=== PATIENT | male | born 1935 | race Caucasian/White ===

== ENCOUNTER 2024-08-06 15:51 | Inpatient (IN) | payer OTHER, SELFPAY ==
[2024-08-06] VITALS (11 sets, daily range): BP systolic 140–191; BP diastolic 72–101
--- NOTE | 2024-08-06 12:09 | ED.GENMED ---
History of Present Illness
General
Chief Complaint: Musculo-Skeletal Complaint
Time Seen by Provider: 08/06/24 11:56
History of Present Illness
History of Present Illness:
Patient is an 89-year-old male with a history of dementia who [facility]. He is a new patient there. Staff noted his arm on the right side to be bruised after falls over the past few days. His daughter
accompanies him. She notes otherwise he is mentally at his baseline. There is no injury elsewhere that he noticed or family noticed.
Phy Exam
Physical Exam
Physical Exam:
General: No acute distress
Head: NCAT
Neck, Normal in appearance, no swelling, nontender
Respiratory: No Respiratory distress
Abdomen: No distension, no tenderness
Ext: Right arm diffusely erythematous with bruising that is partially healed to the right shoulder and dependent bruising throughout the right upper extremity. He has limited range of motion of the right shoulder and pain with palpation. Full
range of motion at the elbow and wrist without tenderness. Compartments are soft. Radial and ulnar pulses are palpable. 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 Pelvis/Lower
extremities atraumatic
Neuro: Alert and oriented x 1. Moves all extremities. Cranial nerves grossly intact. Sensation intact throughout. No dysmetria.
Skin: Pale
Course
Orders/Labs/Results
Orders:
Orders
08/06/24 11:29
EKG [Electrocardiogram (*1)] Urgent
Reason for Study: Other
Other Reason for Exam: frequent falls
08/06/24 11:30
EKG- Treatment ONCE
08/06/24 12:07
Elbow, 3 View, Right [CR Elbow - Right Min 3 Views] Urgent
Comment:
Reason For Exam: trauma
Shoulder, Right 2 Views [CR Shoulder - Right Min 2 View] Urgent
Comment:
Reason For Exam: arm trauma
Wrist, Right 3 Views [CR Wrist - Right Min 3 Views] Urgent
Comment:
Reason For Exam: trauma
08/06/24 12:08
CT Head W/o Iv Contrast Urgent
Comment:
Reason For Exam: fall
CR Chest - 2 Views Urgent
Comment:
Reason For Exam: chest trauma
08/06/24 13:00
Complete Blood Count/With Diff Urgent
Comprehensive Metabolic Panel Urgent
Creatine Phosphokinase Urgent
08/06/24 13:18
Straight Cath As Directed
Frequency: One time now
08/06/24 13:58
Urinalysis Reflex To Culture Urgent
Date Specimen was Collected: 08/06/24
Time Specimen was Collected: 13:56
Urine Microscopic Reflex Cult Urgent
08/06/24 14:57
0.9% Sodium Chloride 1000 ml [Nss] 1,000 ml IV BOLUS
Sling [Braces/Immobilizers] As Directed
Type of Brace/Immobilizer: Shoulder
08/06/24 15:16
Add On- LAB Urgent
Tests Added?: Total CK
Abnormal Lab Results
08/06/24 08/06/24
13:00 13:58
RBC 3.34 L 10^6/uL
(4.70-6.10)
Hgb 10.4 L g/dL
(13.0-18.0)
Hct 30.7 L %
(39.0-52.0)
MCH 31.1 H pg
(27.0-31.0)
RDW 16.3 H %
(11.5-14.5)
MPV 11.0 H fL
(7.4-10.4)
Absolute Lymphs (auto) 0.7 L 10^3/uL
(1.2-3.4)
Neutrophils % 79.7 H %
(42.2-75.2)
Lymphocytes % 11.3 L %
(20.5-51.1)
Sodium 133 L mmol/L
(135-145)
BUN 30 H mg/dl
(9-20)
Creatinine 1.7 H mg/dL
(0.7-1.3)
Glucose 112 H mg/dl
(70-99)
Total Bilirubin 3.5 H mg/dl
(0.2-1.3)
Ur Occult Blood Reflex 2+ A
(Negative)
Urine Urobilinogen 2+ A
(Neg - 1+)
Urine RBC 3-6 A /HPF
(0-2)
Urine Albumin (Reflex) 3+ A
(Neg - Trace)
08/06/24 13:00
08/06/24 13:00
Vital Signs
Initial and Last Documented VS:
Initial Vital Signs
Temp Pulse Resp BP Pulse Ox
97.6 F 67 18 157/83 96
08/06/24 11:18 08/06/24 11:18 08/06/24 11:18 08/06/24 11:18 08/06/24 11:18
Last Documented Vital Signs
Temp Pulse Resp BP Pulse Ox
97.6 F 69 21 179/95 94
08/06/24 11:18 08/06/24 14:15 08/06/24 14:00 08/06/24 14:00 08/06/24 14:15
*Critical Care Note
Total Time (30-74mins, 75-104mins- exclusive of procedures): Not Applicable
ED Attending Note
ED Attending Note
ED Attending Note:
patient with dementia
frequent falling at [facility]
large bruise to R arm -- healing . No fx seen. Suspect rotator cuff injury. placed in splint
Appears dehydrated . Giving IVF. LULU noted
will admit for further management, pt eval
-
Portions of this chart may have been created with voice recognition software.� Occasional wrong word or��sound alike� substitutions may have occurred due to the inherent limitations of voice recognition software.
Discharge Plan
Departure
Patient Disposition: Admit
Date of Disposition: 08/06/24
Time of Disposition: 15:13
Presentation/result/management discussed w/ accepting MD/DO: Hospitalist
Discharge Problem:
LULU (acute kidney injury), Injury of shoulder
Referrals:
Ronn Jordan MD [Family Provider] -
Interventions
Interventions:
*Risk Screen - Suicide Last Done: 08/06/24 11:18
*General Assessment Last Done: 08/06/24 11:18
*Neglect/Abuse Screening Last Done: 08/06/24 11:18
*ED COVID-19 Vaccine History Last Done: 08/06/24 11:18
ED-Musculoskeletal Assessment Last Done: 08/06/24 11:58
ED- Neurological Assessment Last Done: 08/06/24 11:58
ED-Skin Assessment Last Done: 08/06/24 11:58
Discharge Date and Time
Print Language: OCCITAN
[2024-08-06 13:11] LABS: % Eosinophils 0.6 % (0-6); % Immature Granulocytes 0.5 % (0-0.5); % Lymphocytes 11.3 % (20.5-51.1); % Monocytes 7.9 % (1.7-9.3); % Neutrophils 79.7 % (42.2-75.2); Absolute Lymphocytes 0.7 10^3/uL (1.2-3.4); Absolute Monocytes 0.5 10^3/uL (0.1-0.6); Hematocrit 30.7 % (39.0-52.0); Hemoglobin 10.4 g/dL (13.0-18.0); Mean Corp Hgb Conc. 33.9 g/dL (33.0-37.0); Mean Corpuscular Hgb 31.1 pg (27.0-31.0); Mean Corpuscular Volume 91.9 fL (80.0-94.0); Nucleated Red Blood Cells % 0 % (-); Platelet Count 147 10^3/uL (130-400); Red Blood Cell Count 3.34 10^6/uL (4.70-6.10); Red Cell Dist. Width 16.3 % (11.5-14.5); White Blood Cell Count 6.2 10^3/uL (4.8-10.8)
[2024-08-06 13:22] LABS: ALT (SGPT) 26 U/L (0-50); AST (SGOT) 47 U/L (17-59); Albumin 3.9 g/dl (3.5-5.0); Alkaline Phosphatase 84 U/L (38-126); Blood Urea Nitrogen 30 mg/dl (9-20); Calcium 8.7 mg/dl (8.4-10.2); Carbon Dioxide 27 mmol/L (22-30); Chloride 102 mmol/L (98-107); Glucose 112 mg/dl (70-99); Potassium 3.8 mmol/L (3.5-5.1); Sodium 133 mmol/L (135-145); Total Bilirubin 3.5 mg/dl (0.2-1.3)
[2024-08-06 14:23] LABS: Urine Albumin 3+ (Neg - Trace); Urine Bilirubin Negative (Negative); Urine Character Clear (Clear); Urine Color Yellow; Urine Glucose Negative (Negative); Urine Ketone Negative (Negative); Urine Leukocyte Negative (Negative); Urine Nitrite Negative (Negative); Urine Occult Blood 2+ (Negative); Urine Specific Gravity 1.015 (<1.030); Urine Urobilinogen 2+ (Neg - 1+)
[2024-08-06 15:04] LABS: Urine Mucus Many
[2024-08-06 15:05] LABS: Urine Amorphous Seen; Urine Squamous Cell 0-2 /LPF (Few)
[2024-08-06 15:06] LABS: Urine White Cell 0-2 /HPF (0-5)
[2024-08-06] MEDS: NSS 1000 IV (15:28)
--- NOTE | 2024-08-06 15:44 | HPS.HSE ---
Family Physician
-
Family Physician: Ronn Jordan
Chief Complaint
-
Right arm swelling and bruising for a few days during
History of Present Illness
89 years old male came from retirement. Patient has dementia and unable to provide history. History taken from family at bedside. Patient had history of falls. Has history of dementia. Recent months started on Aricept. Patient has gait
dysfunction. Multiple falls. Right upper extremity noticed to be have swelling with the bruising and staff at retirement put shoulder sling. No history of bone fracture.
In the ER, x-ray of the right shoulder/elbow/wrist no acute abnormalities or fracture.
Medical History
Past Medical History
Past Medical History: Reports Other (Coronary artery disease, status post pacemaker, permanent atrial fibrillation, gait dysfunction, CVA ( right side), dementia, renal insufficiency)
Past Surgical History: Reports Other (No recent major surgery)
Social History
Tobacco: Non-smoker
Alcohol: None
Drug: None
Personal:
Living: Longterm
Employment: Retired (worked as tile and marble installer. )
Family History
Family History: Not pertinent
Allergies / Home Medications
Allergies reflects when Allergies were last updated in [facility].
Home Medications with original date entered in [facility]
Allergy/Medication List:
Allergies
NKDA
Allergy/AdvReac Type Severity Reaction Status Date / Time
No Allergy Information Allergy Unverified 08/06/24 11:25
Available
Protonix
Aricept
Aspirin
Lasix
Atorvastatin
Review of Systems
-
Unable to obtain full review of systems at this time due to: Dementia
Physical Exam
Vital Signs
Vital Signs
Temp Pulse Resp BP Pulse Ox
97.6 F 69 21 179/95 94
08/06/24 11:18 08/06/24 14:15 08/06/24 14:00 08/06/24 14:00 08/06/24 14:15
Physical Exam
General: No Apparent Distress and Comfortable
HEENT: Moist mucous membranes and Atraumatic
Respiratory: Decreased Breath Sounds
Cardiac: S1/S2 and Murmur
GI: Soft, Non Tender and Non Distended
Genito-urinary: No Bloody Urine or Guerra
Musculoskeletal: No Cyanosis and Edema, Right Upper Extremity (with bruising, non tender)
Skin: Warm; No Jaundice
Neuro: Awake; No Slurred Speech, Facial Droop or Tremors
Psych: Calm and Apparent Dementia
Laboratory Results
-
08/06/24 13:00
08/06/24 13:00
Laboratory Results
Total Bilirubin 3.5 mg/dl (0.2-1.3) H 08/06/24 13:00
AST 47 U/L (17-59) 08/06/24 13:00
ALT 26 U/L (0-50) 08/06/24 13:00
Alkaline Phosphatase 84 U/L (38-126) 08/06/24 13:00
Impression/Plan
-
89 years old male presented with bruising and swelling of right upper extremity over the past few days. History of falls
# Right upper extremity bruising and swelling. No tenderness on examination.
If movement of the shoulder is nontender or limited. Limited movement of the elbow but nontender.
X-ray no acute fracture
Differential diagnosis include traumatic hematoma versus DVT
Will order venous ulcers
CAT scan of the right upper extremity without contrast due to renal insufficiency
Ordered Tylenol for pain as needed
# Gait dysfunction/history of multiple falls
Uses walker for ambulation
CAT scan showed old left parietal infarct and lacunar infarct in the left lentiform nucleus with diffuse cortical atrophy
PT/OT
Fall precautions
# Traumatic rhabdomyolysis
With history of falls.
Creatinine 290.
Will monitor
Mild IV fluid given.
# Primary hypertension
Uncontrolled.
Will try to get medication list, not available at present time.
Will give as needed low-dose hydralazine as needed.
# History of dementia, possible vascular due to history of stroke, continue with Aricept.
Discussed with family to use low-dose Risperdal for agitation, they agreed.
# History of coronary artery disease status cardiac bypass surgery. Patient follows with [facility]. We do not have records. No history of chest pain.
EKG paced rhythm.
Check troponin
Will try to get records. We do not have old EKG to compare
# History of permanent atrial fibrillation.
Off Eliquis due to history of falls. Currently on aspirin only
Monitor on telemetry
#Hyponatremia,
Mild. Will monitor
#Acute kidney injury. Suspect underlying chronic kidney disease.
Family was told last admission in [place] the his levels were elevated but they did not know the baseline and did not have records.
Will do bladder scan. Urine test is ordered.
Avoid nephrotoxic.
No history of vomiting or diarrhea.
Total time spent to see the patient on the floor, examine the patient, review data and lab results, discuss treatment plan with patient, family, ER doctor and nursing staff around 75 minutes
[2024-08-06 16:03] LABS: Creatine Phosphokinase 290 U/L (55-170)
[2024-08-06 16:36] LABS: COVID-19 Antigen Negative (Negative)
[2024-08-06 16:51] LABS: Troponin I 0.109 ng/ml
--- NOTE | 2024-08-06 18:15 | PTCARENOTE ---
Patient admitted in to room 435-2. AAOx1-2, agitated. PRN Risperdal administered. BP elevated, PRN hydralazine administered. Daughter at bedside. Bed alarm in place for patient safety.
[2024-08-06] MEDS: RISPERDAL 0.25 MG PO (18:54)
[2024-08-06] MEDS: APRESOLINE 5 MG IV (18:54)
[2024-08-06] MEDS: HEPARIN 5000 UNITS SC (19:40)
[2024-08-06 23:07] LABS: Troponin I 0.102 ng/ml
[2024-08-07] VITALS (11 sets, daily range): BP systolic 151–187; BP diastolic 69–103; PULSE 67; O2SAT 98
[2024-08-07 03:33] LABS: Troponin I 0.107 ng/ml
[2024-08-07] MEDS: HEPARIN 5000 UNITS SC ×2 (08:02→19:02)
[2024-08-07] MEDS: PROTONIX 40 MG PO (08:03)
[2024-08-07] MEDS: RISPERDAL 0.25 MG PO ×2 (08:03→19:01)
[2024-08-07] MEDS: LOW STRENGTH ASPIRIN 81 MG PO (08:03)
--- NOTE | 2024-08-07 09:06 | W.PN.HOSP.TC ---
Today's Communication/Plan
-
Empiric IV Ancef ( short course)
Give Tylenol to help with pain/agitation
Await blood work today
Assessment / Plan
Assessment / Plan
Physical Exam
General: No Apparent Distress and Comfortable
HEENT: Moist mucous membranes and Atraumatic
Respiratory: Decreased Breath Sounds
Cardiac: S1/S2 and Murmur
GI: Soft, Non Tender and Non Distended
Genito-urinary: No Bloody Urine or Guerra
Musculoskeletal: No Cyanosis and Edema, Right Upper Extremity (with bruising, non tender)
Skin: Warm; No Jaundice
Neuro: Awake; No Slurred Speech, Facial Droop or Tremors
Psych: Calm and Apparent Dementia
89 years old male presented with bruising and swelling of right upper extremity over the past few days. History of falls
# Right upper extremity contusion with bruising and swelling. No tenderness on examination.
Movement of the shoulder is nontender or limited. Limited movement of the elbow.
X-ray no acute fracture
US , no DVT
CT scan showed soft tissue swelling, seems contusion. Doubt cellulitis due to lack of fever, leukocytosis. Pt is not reliable about pain. Will do short course of IV Ancef.
Will order venous ulcers
c/w Tylenol for pain as needed
# Gait dysfunction/history of multiple falls
Uses walker for ambulation
CAT scan showed old left parietal infarct and lacunar infarct in the left lentiform nucleus with diffuse cortical atrophy
PT/OT
Fall precautions
# Traumatic rhabdomyolysis
With history of falls.
Creatinine 290.
Will monitor
Mild IV fluid given.
# Primary hypertension
Uncontrolled. Ordered BB
c/w as needed low-dose hydralazine as needed.
# History of dementia, possible vascular due to history of stroke, continue with Aricept.
Discussed with family to use low-dose Risperdal for agitation, they agreed.
# History of coronary artery disease status cardiac bypass surgery. Patient follows with [facility]. We do not have records. No history of chest pain.
EKG paced rhythm.
Check troponin
Will try to get records. We do not have old EKG to compare
# History of permanent atrial fibrillation/ CAD s/w surgery.
Back on BB and aspirin.
s/p pacemaker.
Off Eliquis due to history of falls. Currently on aspirin only
Monitored on telemetry
#Hyponatremia,
Mild. Will monitor
#Acute kidney injury. Suspect underlying chronic kidney disease.
Family was told last admission in [place] the his levels were elevated but they did not know the baseline and did not have records.
Bladder scan, no retention. Urine test is clear, positive RBCs.
c/w Flomax ,
Avoid nephrotoxic.
No history of vomiting or diarrhea.
Await blood work today
Total time spent to see the patient on the floor, examine the patient, review data and lab results, discuss treatment plan with nursing staff around 75 minutes
Anticipated Discharge: 24 - 48 hours
Subjective/Interval History
-
Date of Service: August 07, 2024
No chest pain
No sob
No fevers
+ agitation
Objective Data
-
Labs:
Laboratory Results
08/07/24
08:13
WBC Pending
Hgb Pending
Hct Pending
Plt Count Pending
Sodium Pending
Potassium Pending
Chloride Pending
Carbon Dioxide Pending
BUN Pending
Creatinine Pending
Glucose Pending
Calcium Pending
Vital Signs:
Vital Signs
Temp Pulse Resp BP Pulse Ox
97.9 F 69 22 166/103 95
08/07/24 07:20 08/07/24 07:20 08/07/24 07:20 08/07/24 07:20 08/07/24 07:20
I&O
08/06/24 08/07/24 08/08/24
06:59 06:59 06:59
Intake Total 240 / 240
Balance 240 / 240
[2024-08-07] MEDS: FLOMAX PO ×2 (09:11→09:23)
[2024-08-07] MEDS: LOPRESSOR PO ×2 (09:11→09:23)
[2024-08-07] MEDS: LASIX PO ×2 (09:11→09:23)
[2024-08-07] MEDS: ANCEF 5 IV ×2 (09:17→17:06)
[2024-08-07] MEDS: APRESOLINE 5 MG IV ×2 (09:18→15:33)
[2024-08-07 09:21] LABS: Hematocrit 31.4 % (39.0-52.0); Hemoglobin 10.1 g/dL (13.0-18.0); Mean Corp Hgb Conc. 32.2 g/dL (33.0-37.0); Mean Corpuscular Hgb 30.5 pg (27.0-31.0); Mean Corpuscular Volume 94.9 fL (80.0-94.0); Mean Platelet Volume 10.7 fL (7.4-10.4); Platelet Count 161 10^3/uL (130-400); Red Blood Cell Count 3.31 10^6/uL (4.70-6.10); Red Cell Dist. Width 16.4 % (11.5-14.5); White Blood Cell Count 7.9 10^3/uL (4.8-10.8)
[2024-08-07 10:16] LABS: Blood Urea Nitrogen 27 mg/dl (9-20); Calcium 8.5 mg/dl (8.4-10.2); Carbon Dioxide 22 mmol/L (22-30); Chloride 106 mmol/L (98-107); Creatine Phosphokinase 358 U/L (55-170); Estimated Creatinine Clearance 24 ml/min; Glucose 116 mg/dl (70-99); Potassium 3.4 mmol/L (3.5-5.1); Sodium 137 mmol/L (135-145)
[2024-08-07] MEDS: LOPRESSOR 25 MG PO (19:01)
[2024-08-07] MEDS: ARICEPT 5 MG PO (21:02)
[2024-08-07] MEDS: KLOR-CON 20 MEQ PO (21:02)
[2024-08-08] MEDS: ANCEF 5 IV ×3 (02:31→16:38)
[2024-08-08 03:05] VITALS: BP 169/81
[2024-08-08 07:07] LABS: Blood Urea Nitrogen 27 mg/dl (9-20); Calcium 8.6 mg/dl (8.4-10.2); Carbon Dioxide 24 mmol/L (22-30); Chloride 106 mmol/L (98-107); Estimated Creatinine Clearance 27 ml/min; Glucose 82 mg/dl (70-99); Potassium 3.5 mmol/L (3.5-5.1); Sodium 140 mmol/L (135-145)
[2024-08-08 07:59] VITALS: BP 200/93
[2024-08-08] MEDS: PROTONIX 40 MG PO (08:05)
[2024-08-08] MEDS: HEPARIN 5000 UNITS SC ×2 (08:05→20:39)
[2024-08-08] MEDS: LOPRESSOR 25 MG PO (08:05)
[2024-08-08] MEDS: FLOMAX 0.4 MG PO (08:05)
[2024-08-08] MEDS: KLOR-CON 20 MEQ PO (08:05)
[2024-08-08] MEDS: LASIX 40 MG PO (08:05)
[2024-08-08] MEDS: LOW STRENGTH ASPIRIN 81 MG PO (08:05)
--- NOTE | 2024-08-08 08:05 | PTCARENOTE ---
08/08- When attempting to administer medications in applesauce and feeding patient breakfast, patient aspirated on food. He visibly coughed it back up, vomiting it into a vomit bag, and he continued coughing after the emesis. HE has wet gurgly
voice quality and expiratory wheezing in his lower lobes. POX=95%R on RA with 84=HR. He needs to be told to swallow any food in his mouth. He is AAOX2. See Nursing Assessment. Notified Physician. Asked for NPO status and consulted Speech
Therapy.
--- NOTE | 2024-08-08 09:21 | CM ---
Initial assessment completed with daughter, Shraddha, via phone
Pharmacy verified: [facility] @ [address] [place] [address]
Daughter reported that patient was recently admitted to [facility] on 07/29/24; patient requires total care; incontinent; mobility via wheelchair since he has been there; used a rolling walker prior to his admission to facility
SNF stay 01/2024 @ [facility]; home health aids prior to move to [facility]
Daughter requested ambulance transport when discharged
PT recommendation is SNF vs return to [facility] with PT/OT
Plan: return to [facility]
--- NOTE | 2024-08-08 11:18 | W.PN.HOSP.TC ---
Addendum entered and electronically signed by Ralph Lopez MD 08/08/24 14:01:
Addendum
Patient is unable to swallow safely. Pulm hold oral diet and most of his oral medications. Start the patient on mild IV fluid with dextrose to avoid hypoglycemia. Change to IV metoprolol, IV Lasix, as needed IV hydralazine, IV Protonix, rectal
PRN Tylenol suppository, rectal aspirin.
Discussed with daughters at the bedside. Will continue supportive care. CODE STATUS, DNR/DO NOT INTUBATE. Consulted to speech therapy.
End
Original Note:
Today's Communication/Plan
-
c/w PT/OT
Monitor Bp
BMP in am
Assessment / Plan
Assessment / Plan
Physical Exam
General: No Apparent Distress and Comfortable
HEENT: Moist mucous membranes and Atraumatic
Respiratory: Decreased Breath Sounds
Cardiac: S1/S2 and Murmur
GI: Soft, Non Tender and Non Distended
Genito-urinary: No Bloody Urine or Guerra
Musculoskeletal: No Cyanosis and Edema, Right Upper Extremity (with bruising, swelling ( less today) non tender), good peripheral pulse.
Skin: Warm; No Jaundice
Neuro: Awake; No Slurred Speech, Facial Droop or Tremors,confused. Right arm weakness ( chronic post stroke in past).
Psych: Calm and Apparent Dementia
89 years old male presented with bruising and swelling of right upper extremity over the past few days. History of falls
# Right upper extremity contusion with bruising and swelling. No tenderness on examination.
Movement of the shoulder is nontender or limited. Limited movement of the elbow. Swelling is less today, still bruising noted and induration, no tenderness on exam ( pt is not able to report due to dementia), good right peripheral pulse.
X-ray no acute fracture
US , no DVT
CT scan showed soft tissue swelling, seems contusion. Doubt cellulitis due to lack of fever, leukocytosis. Pt is not reliable about pain. To do 3 days of IV Ancef.
c/w Tylenol for pain as needed
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
# Gait dysfunction/history of multiple falls
Uses walker for ambulation
CAT scan showed old left parietal infarct and lacunar infarct in the left lentiform nucleus with diffuse cortical atrophy
PT/OT
Fall precautions
# Traumatic rhabdomyolysis With history of falls.
CPK 290 and went up.
Creatinine is improving.
s/p IV fluid.
# Primary hypertension
Uncontrolled. Ordered his BB and Lasix.
c/w as needed low-dose hydralazine as needed.
# History of dementia, possible vascular due to history of stroke, continue with Aricept.
Discussed with family to use low-dose Risperdal for agitation, they agreed.
# History of coronary artery disease status cardiac bypass surgery. Patient follows with [facility]. We do not have records. No history of chest pain.
EKG paced rhythm.
Check troponin
Will try to get records. We do not have old EKG to compare
# History of permanent atrial fibrillation/ CAD s/w surgery.
Back on BB and aspirin.
s/p pacemaker.
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 Currently on aspirin only
Monitored on telemetry
#Hyponatremia,
Mild. Will monitor
#Acute kidney injury. 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
Creatinine came down.
Family was told last admission in [place] the his levels were elevated but they did not know the baseline and did not have records.
Bladder scan, no retention. Urine test is clear, positive RBCs.
c/w Flomax ,
Avoid nephrotoxic.
No history of vomiting or diarrhea.
Total time spent to see the patient on the floor, examine the patient, review data and lab results, discuss treatment plan with nursing staff around 75 minutes
Anticipated Discharge: 24 - 48 hours
Subjective/Interval History
-
Date of Service: August 08, 2024
No fever over night
Took his medications last night
Objective Data
-
Labs:
Laboratory Results
08/08/24
06:02
Sodium 140
Potassium 3.5
Chloride 106
Carbon Dioxide 24
BUN 27 H
Creatinine 1.5 H
Glucose 82
Calcium 8.6
Vital Signs:
Vital Signs
Temp Pulse Resp BP Pulse Ox
97.5 F 67 28 200/93 95
08/08/24 07:59 08/08/24 07:59 08/08/24 07:59 08/08/24 07:59 08/08/24 07:59
I&O
08/07/24 08/08/24 08/09/24
06:59 06:59 06:59
Intake Total 240 / 240 220 / 220
Balance 240 / 240 220 / 220
[2024-08-08] MEDS: APRESOLINE 10 MG IV (13:52)
[2024-08-08] MEDS: D5/0.9% SODIUM CHLORIDE 1000 IV (14:11)
[2024-08-08] MEDS: LOPRESSOR 2.5 MG IV ×3 (14:12→23:18)
[2024-08-08 16:00] VITALS: BP 146/88
[2024-08-08 17:43] VITALS: BP 146/88
[2024-08-08 19:50] VITALS: BP 145/85
[2024-08-08] MEDS: TYLENOL/FEVERALL 650 MG RECTAL (21:25)
[2024-08-08] MEDS: RISPERDAL M-TAB (ORALLY DISINTEGRATING) 1 MG PO (21:25)
[2024-08-08 22:11] VITALS: BP 186/80
[2024-08-09] MEDS: ANCEF 5 IV ×3 (01:50→17:11)
[2024-08-09] MEDS: D5/0.9% SODIUM CHLORIDE 1000 IV ×2 (02:00→14:54)
[2024-08-09 02:57] VITALS: BP 158/75
[2024-08-09] MEDS: LOPRESSOR 2.5 MG IV ×4 (05:17→23:45)
[2024-08-09 06:00] VITALS: BMI 26.3
[2024-08-09 07:27] VITALS: BP 156/86
[2024-08-09] MEDS: FLOMAX PO (08:02)
[2024-08-09] MEDS: PROTONIX IV 40 MG IV (08:03)
[2024-08-09] MEDS: HEPARIN 5000 UNITS SC ×2 (08:03→20:17)
[2024-08-09] MEDS: NSS (PRESERVATIVE FREE) 10 ML IV (08:03)
[2024-08-09 08:17] LABS: Hematocrit 30.5 % (39.0-52.0); Hemoglobin 9.6 g/dL (13.0-18.0); Mean Corp Hgb Conc. 31.5 g/dL (33.0-37.0); Mean Corpuscular Hgb 30.2 pg (27.0-31.0); Mean Corpuscular Volume 95.9 fL (80.0-94.0); Mean Platelet Volume 10.7 fL (7.4-10.4); Platelet Count 154 10^3/uL (130-400); Red Blood Cell Count 3.18 10^6/uL (4.70-6.10); Red Cell Dist. Width 17.1 % (11.5-14.5); White Blood Cell Count 8.5 10^3/uL (4.8-10.8)
[2024-08-09 08:42] LABS: Blood Urea Nitrogen 25 mg/dl (9-20); Calcium 8.6 mg/dl (8.4-10.2); Carbon Dioxide 26 mmol/L (22-30); Chloride 110 mmol/L (98-107); Creatine Phosphokinase 199 U/L (55-170); Estimated Creatinine Clearance 29 ml/min; Glucose 144 mg/dl (70-99); Potassium 3.5 mmol/L (3.5-5.1); Sodium 143 mmol/L (135-145); eGFR 48.34
--- NOTE | 2024-08-09 09:49 | PTOTSP ---
Dysphagia Evaluation
Patient with signs of oral/pharyngeal dysphagia and concern for possible aspiration, likely exacerbated by AMS. Chronic dysphagia risk factors noted (i.e., dementia, CVA). CXR this admission w/o PNA.
Recommend:
1. Temporary NPO
2. Medications via non-oral means
3. Oral care 3-5x daily with suctioning
4. Aspiration Risk Hydration Protocol - hold given overt coughing and wet vocal quality with sparing water
5. Dysphagia tx at the acute care level to determine if/when appropriate for diet and/or if instrumental testing appropriate
[2024-08-09 10:46] VITALS: BP 184/102
[2024-08-09] MEDS: RISPERDAL M-TAB (ORALLY DISINTEGRATING) 0.5 MG PO ×2 (12:42→20:17)
--- NOTE | 2024-08-09 12:46 | PTCARENOTE ---
Pt yelling, screaming out loud, agitated and pushing back at nursing care given. Dr Doty made aware and Risperdal 0.5mg SL given to pt. Will await results.
--- NOTE | 2024-08-09 14:07 | W.PN.HOSP.TC ---
Addendum entered and electronically signed by Magdi Doty MD 08/09/24 14:41:
Updated daughter Shraddha over the phone in details. Discussed with her that patient continues to fail speech and swallow evaluation. If the trend continues then patient would not be an appropriate candidate for feeding tube as with dementia
patient would like to remove it. Daughter also agreed. If patient continues to fail speech and swallow evaluation and plan will be to transition patient to hospice with comfort feeding. Will await repeat speech eval tomorrow.
Original Note:
Today's Communication/Plan
-
Continue with IV fluid
Speech evaluation daily
Monitor mentation
Risperdal standing
Fall precautions
Monitor labs
Prognosis guarded
Assessment / Plan
Assessment / Plan
Physical Exam
General: agitated
HEENT: Moist mucous membranes and Atraumatic
Respiratory: Decreased Breath Sounds
Cardiac: S1/S2 and Murmur
GI: Soft, Non Tender and Non Distended
Genito-urinary: No Bloody Urine or Guerra
Musculoskeletal: No Cyanosis and Edema, Right Upper Extremity (with bruising, non tender), good peripheral pulse.
Skin: Warm; No Jaundice
Neuro: Awake; No Slurred Speech, Facial Droop or Tremors,confused. Right arm weakness ( chronic post stroke in past).
Psych: agitated. Apparent Dementia
89 years old male presented with bruising and swelling of right upper extremity over the past few days. History of falls
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
Patient with severe agitation will start patient on Risperdal twice daily
fall precautions.
# Dysphagia
Speech recommending n.p.o. for now
Continue with IV fluids D5 normal saline. Monitor sodium level.
PO meds held and switch to IV for now.
# Right upper extremity contusion with bruising and swelling. No tenderness on examination.
Movement of the shoulder is nontender or limited. Limited movement of the elbow. good right peripheral pulse.
X-ray no acute fracture
US , no DVT
CT scan showed soft tissue swelling, seems contusion. Doubt cellulitis due to lack of fever, leukocytosis. Pt is not reliable about pain. To do 3 days of IV Ancef.
c/w Tylenol for pain as needed
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
# Gait dysfunction/history of multiple falls
Uses walker for ambulation
CAT scan showed old left parietal infarct and lacunar infarct in the left lentiform nucleus with diffuse cortical atrophy
PT/OT
Fall precautions
# Traumatic rhabdomyolysis With history of falls.
CPK 290 and went up.
Creatinine is improving.
s/p IV fluid.
# Primary hypertension
Uncontrolled. IV meds
c/w as needed low-dose hydralazine as needed.
# History of coronary artery disease status cardiac bypass surgery. Patient follows with [facility]. We do not have records. No history of chest pain.
# Elevated troponin likely nonischemic myocardial injury
EKG paced rhythm.
Will try to get records. We do not have old EKG to compare
# History of permanent atrial fibrillation/ CAD s/w surgery.
Back on BB and aspirin.
s/p pacemaker.
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 Currently on aspirin only
Monitored on telemetry
#Hyponatremia,
Mild. Will monitor
#Acute kidney injury. 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
Creatinine came down.
Family was told last admission in [place] the his levels were elevated but they did not know the baseline and did not have records.
Bladder scan, no retention. Urine test is clear, positive RBCs.
c/w Flomax ,
Avoid nephrotoxic.
No history of vomiting or diarrhea.
called daughter Shraddha JEAN to update but no response. Left for callback.
Anticipated Discharge: > 48 hours
Subjective/Interval History
-
Date of Service: August 09, 2024
agitated this morning
failed speech eval
Objective Data
-
Labs:
Laboratory Results
08/09/24
06:53
WBC 8.5
Hgb 9.6 L
Hct 30.5 L
Plt Count 154
Sodium 143
Potassium 3.5
Chloride 110 H
Carbon Dioxide 26
BUN 25 H
Creatinine 1.4 H
Glucose 144 H
Calcium 8.6
Vital Signs:
Vital Signs
Temp Pulse Resp BP Pulse Ox
98.6 F 76 18 184/102 96
08/09/24 10:46 08/09/24 10:46 08/09/24 10:46 08/09/24 11:28 08/09/24 10:46
I&O
08/08/24 08/09/24 08/10/24
06:59 06:59 06:59
Intake Total 220 / 220 1000 / 1000
Balance 220 / 220 1000 / 1000
Data Reviewed
-
Total Time Spent with Patient (in minutes): 58
[2024-08-09 15:18] VITALS: BP 175/92
--- NOTE | 2024-08-09 15:31 | CM ---
Chart reviewed and physical therapy are recommending skilled placement v's return to memory care at [facility]. Will follow with patient progress and reach out to family regarding plan for patient.
Plan: To await final recommendation from patient's family.
[2024-08-09] MEDS: NSS (PRESERVATIVE FREE) 0.125 ML IV (16:16)
[2024-08-09] MEDS: ATIVAN 0.25 MG IV (16:16)
--- NOTE | 2024-08-09 16:48 | PN.CDI ---
CDI
- -
CDI:
Physician Documentation Request
Admit Date: 08/06/24 15:51
Dear Doctor Soren,
Please review the following and provide your response in the progress notes.
Clinical Indicators:
Laboratory Tests
08/06/24 08/06/24 08/07/24
16:14 22:31 02:34
Troponin I 0.109 H* 0.102 H* 0.107 H*
Based on the above and your clinical assessment, please clarify the appropriate diagnosis, if significant, that supports the above abnormalities and additional evaluation, monitoring and/or treatment rendered:
Non ischemic myocardial injury
Abnormal lab value, clinically insignificant
Other(please specify)
Use of terms such as suspected, likely, concern for, or probable (associated with a specific diagnosis that is being evaluated, monitored, or treated as if it exists) are acceptable and can be coded in the inpatient setting, when documented at the
time of discharge.
Thank you,
Diana Reed RN BSN CCDS
CDI Specialist
please contact via tiger text
Please use your independent medical judgment in providing your response.
--- NOTE | 2024-08-09 16:52 | PN.CDI ---
CDI
- -
CDI:
Physician Documentation Request
Admit Date: 08/06/24 15:51
Dear Doctor Soren,
Please review the following and provide your response in the progress notes.
Clinical Indicators:
Laboratory Tests
08/06/24
13:00
Total Bilirubin 3.5 H
Based on the above, please clarify in the progress notes, the appropriate diagnosis, if significant, that supports the above abnormalities and additional evaluation, monitoring and/or treatment rendered:
Elevated total bilirubin
Abnormal lab value, clinically insignificant
Other(please specify)
Use of terms such as suspected, likely, concern for, or probable (associated with a specific diagnosis that is being evaluated, monitored, or treated as if it exists) are acceptable and can be coded in the inpatient setting, when documented at the
time of discharge.
Thank you,
Diana Reed RN BSN CCDS
CDI Specialist
please contact via tiger text
Please use your independent medical judgment in providing your response.
[2024-08-09 19:55] VITALS: BP 145/99
[2024-08-09] MEDS: TYLENOL/FEVERALL 650 MG RECTAL (20:17)
[2024-08-09 23:26] VITALS: BP 175/88
[2024-08-10] VITALS (7 sets, daily range): BP systolic 170–189; BP diastolic 84–97; PULSE 88; O2SAT 97
[2024-08-10] MEDS: ANCEF 5 IV ×2 (02:28→13:51)
[2024-08-10] MEDS: LOPRESSOR 2.5 MG IV ×2 (05:09→11:37)
[2024-08-10] MEDS: D5/0.9% SODIUM CHLORIDE 1000 IV (05:09)
[2024-08-10 07:20] LABS: % Basophils 0.2 % (0-2); % Immature Granulocytes 1.4 % (0-0.5); % Lymphocytes 12.2 % (20.5-51.1); % Monocytes 7.8 % (1.7-9.3); % Neutrophils 76.4 % (42.2-75.2); Absolute Eosinophils 0.1 10^3/uL (0-0.7); Absolute Immature Granulocytes 0.1 10^3/uL (0-0.05); Absolute Lymphocytes 0.6 10^3/uL (1.2-3.4); Absolute Monocytes 0.4 10^3/uL (0.1-0.6); Absolute Neutrophils 3.9 10^3/uL (1.4-6.5); Hematocrit 29.8 % (39.0-52.0); Hemoglobin 9.8 g/dL (13.0-18.0); Mean Corp Hgb Conc. 32.9 g/dL (33.0-37.0); Mean Corpuscular Hgb 30.3 pg (27.0-31.0); Mean Corpuscular Volume 92.3 fL (80.0-94.0); Mean Platelet Volume 11.5 fL (7.4-10.4); Nucleated Red Blood Cells % 0 % (-); Platelet Count 159 10^3/uL (130-400); Red Blood Cell Count 3.23 10^6/uL (4.70-6.10); Red Cell Dist. Width 17.3 % (11.5-14.5); White Blood Cell Count 5.1 10^3/uL (4.8-10.8)
[2024-08-10 07:36] LABS: Blood Urea Nitrogen 22 mg/dl (9-20); Calcium 8.7 mg/dl (8.4-10.2); Carbon Dioxide 21 mmol/L (22-30); Chloride 115 mmol/L (98-107); Estimated Creatinine Clearance 32 ml/min; Glucose 113 mg/dl (70-99); Potassium 3.5 mmol/L (3.5-5.1); Sodium 145 mmol/L (135-145); eGFR 52.84
[2024-08-10] MEDS: HEPARIN 5000 UNITS SC ×2 (07:52→20:12)
[2024-08-10] MEDS: FLOMAX PO (07:52)
[2024-08-10] MEDS: NSS (PRESERVATIVE FREE) 10 ML IV (07:53)
[2024-08-10] MEDS: PROTONIX IV 40 MG IV (07:53)
[2024-08-10] MEDS: RISPERDAL M-TAB (ORALLY DISINTEGRATING) 0.5 MG PO ×2 (07:56→20:12)
[2024-08-10] MEDS: APRESOLINE 10 MG IV ×3 (08:06→20:12)
[2024-08-10] MEDS: TYLENOL/FEVERALL 650 MG RECTAL (09:10)
--- NOTE | 2024-08-10 09:28 | PTCARENOTE ---
Patients BP remains elevated 175/84 post hydralazine administration, MD Doty notified, New orders to be placed. will continue to monitor.
--- NOTE | 2024-08-10 09:31 | PTOTSP ---
Dysphagia Therapy
Impression: Patient with signs of oral/pharyngeal dysphagia and concern for possible aspiration, likely exacerbated by AMS. Chronic dysphagia risk factors noted (i.e., dementia, CVA). Patient is not appropriate for video swallow study at this time
given current mentation. Per discussion with hospitalist, hospice is being considered.
Recommend:
1. Continue temporary NPO pending goals of care
2. Medications via non-oral means
3. Oral care 3-5x daily with suctioning
4. Aspiration Risk Hydration Protocol - hold given episodic absent swallows with ice chips, difficulty following commands, variable awareness of feeding tasks
5. Dysphagia tx at the acute care level to determine if/when appropriate for diet and/or if instrumental testing appropriate pending GOC
*If opting for PO diet for comfort/pleasure understanding risks/complications of aspiration, consider careful spoon feeding of puree and thin liquids with upright posture, small single sips/bites, verbal cues to swallow, breaks/stop if coughing/SOB
observed.
--- NOTE | 2024-08-10 12:52 | W.PN.HOSP.TC ---
Today's Communication/Plan
-
Await family decision
Clonidine patch
Continue with IV fluids in the interim
Prognosis guarded
Assessment / Plan
Assessment / Plan
Physical Exam
General: agitated
HEENT: Dry mucous membrane
Respiratory: Decreased Breath Sounds
Cardiac: S1/S2 and Murmur
GI: Soft, Non Tender and Non Distended
Genito-urinary: No Bloody Urine or Guerra
Musculoskeletal: No Cyanosis and Edema, Right Upper Extremity (with bruising, non tender), good peripheral pulse.
Skin: Warm; No Jaundice
Neuro: Awake; No Slurred Speech, Facial Droop or Tremors,confused. Right arm weakness ( chronic post stroke in past).
Psych: agitated. Apparent Dementia
89 years old male presented with bruising and swelling of right upper extremity over the past few days. History of falls
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
Patient with severe agitation will start patient on Risperdal twice daily
fall precautions.
# Dysphagia
Speech recommending n.p.o. for now
Continue with IV fluids D5 normal saline. Monitor sodium level.
PO meds held and switch to IV for now.
Discussed with patient daughter. Patient is an appropriate candidate for tube feeding as high risk the patient will remove gastric tube daughter and son-in-law agreed. Recommended hospice. Daughter to discuss with patient's spouse and decide.
# Right upper extremity contusion with bruising and swelling. No tenderness on examination.
Movement of the shoulder is nontender or limited. Limited movement of the elbow. good right peripheral pulse.
X-ray no acute fracture
US , no DVT
CT scan showed soft tissue swelling, seems contusion. Doubt cellulitis due to lack of fever, leukocytosis. Pt is not reliable about pain. Plan for 7-day short course of antibiotics. Renally adjusted.
c/w Tylenol for pain as needed
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
# Gait dysfunction/history of multiple falls
Uses walker for ambulation
CAT scan showed old left parietal infarct and lacunar infarct in the left lentiform nucleus with diffuse cortical atrophy
PT/OT
Fall precautions
# Traumatic rhabdomyolysis With history of falls.
CPK 290 and went up.
Creatinine is improving.
s/p IV fluid.
# Primary hypertension
Uncontrolled. IV meds hydralazine and clonidine patch started
If needed can add labetalol or IV Vasotec
# History of coronary artery disease status cardiac bypass surgery. Patient follows with [place] [facility]. We do not have records. No history of chest pain.
# Elevated troponin likely nonischemic myocardial injury
EKG paced rhythm.
Will try to get records. We do not have old EKG to compare
# History of permanent atrial fibrillation/ CAD s/w surgery.
Back on BB and aspirin.
s/p pacemaker.
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 Currently on aspirin only
Monitored on telemetry
#Hyponatremia,
Mild. Will monitor
#Acute kidney injury. 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
Creatinine came down.
Family was told last admission in [place] the his levels were elevated but they did not know the baseline and did not have records.
Bladder scan, no retention. Urine test is clear, positive RBCs.
c/w Flomax ,
Avoid nephrotoxic.
No history of vomiting or diarrhea.
Elevated total bilirubin
Discussed with patient daughter and patient son-in-law at bedside in detail
Anticipated Discharge: > 48 hours
Subjective/Interval History
-
Date of Service: August 10, 2024
Remains with agitation and confusion
Was eval by speech and recommending n.p.o.
Objective Data
-
Labs:
Laboratory Results
08/10/24
06:16
WBC 5.1
Hgb 9.8 L
Hct 29.8 L
Plt Count 159
Sodium 145
Potassium 3.5
Chloride 115 H
Carbon Dioxide 21 L
BUN 22 H
Creatinine 1.3
Glucose 113 H
Calcium 8.7
Vital Signs:
Vital Signs
Temp Pulse Resp BP Pulse Ox
97.7 F 75 20 170/89 98
08/10/24 11:00 08/10/24 11:00 08/10/24 11:00 08/10/24 11:37 08/10/24 11:00
I&O
08/09/24 08/10/24 08/11/24
06:59 06:59 06:59
Intake Total 1000 / 1000 825 / 825
Balance 1000 / 1000 825 / 825
Data Reviewed
-
Total Time Spent with Patient (in minutes): 55
[2024-08-10] MEDS: CATAPRES-TTS-1 0.1 MG TRANSDERM (13:52)
[2024-08-10] MEDS: TRANDATE 10 MG IV (17:12)
--- NOTE | 2024-08-10 17:12 | PTCARENOTE ---
patient's BP remains elevated 182/97 while at rest, MD Fairbanks notified and new orders to be placed. will continue to monitor.
--- NOTE | 2024-08-10 17:40 | PTCARENOTE ---
Report given to Amina in IMU
--- NOTE | 2024-08-10 18:40 | PTCARENOTE ---
Patient is unable to be redirected, does not follow commands. Patent is yelling out throughout the day and requesting water. Patient remains NPO per standing order and mouth care provided. BP monitored throughout the day. will continue to monitor.
--- NOTE | 2024-08-10 21:30 | PTCARENOTE ---
Addendum entered by Basil Holbrook RN 08/11/24 06:19:
Pt continues to rest comfortably no signs of distress/ discomfort. Continuous SP02 98% 2LNC. Respirations regular.
Addendum entered by Basil Holbrook RN 08/11/24 01:26:
Pt resting comfortably with no signs of restlessness, moaning. Sleeping, respirations regular. 98% 2L NC.
Original Note:
Pt tachypneic, restless, moaning seemingly struggling to breathe properly. Continuous SP02 on pt, 94% on RA. Pt placed on 2L NC for comfort. CURING ROOM SUPERVISOR made aware. CURING ROOM SUPERVISOR at bedside. 1mg IV morphine ordered. CURING ROOM SUPERVISOR spoke to family, care transitioning to comfort.
Morphine drip ordered. No further orders.
--- NOTE | 2024-08-10 21:43 | W.PN.UPDATE ---
Update Note
Progress Note Update
-Patient uncomfortable in bed tachypneic, currently on O2 NC, denies SOB, but he looks like struggling to breath. Patient in transition to hospice outpatient. Spoke to the daughters Magalys Llanes, and discussed the current situation and they
would like to start the process of comfort care.
-Comfort care process explained including D/C all meds and starting PRN morphine dose/ morphine gtt. Daughter agreed and mentioned that already discussed with the rest of the family and do not want her dad to suffer any more. Comfort care started.
[2024-08-10] MEDS: MORPHINE SULFATE 1 MG IV (21:44)
[2024-08-10] MEDS: D5/0.9% SODIUM CHLORIDE IV (22:08)
[2024-08-11 06:30] LABS: % Basophils 0.2 % (0-2); % Eosinophils 2.4 % (0-6); % Immature Granulocytes 1.3 % (0-0.5); % Lymphocytes 13.8 % (20.5-51.1); % Neutrophils 72.3 % (42.2-75.2); Absolute Eosinophils 0.1 10^3/uL (0-0.7); Absolute Immature Granulocytes 0.1 10^3/uL (0-0.05); Absolute Lymphocytes 0.6 10^3/uL (1.2-3.4); Absolute Monocytes 0.5 10^3/uL (0.1-0.6); Absolute Neutrophils 3.3 10^3/uL (1.4-6.5); Hematocrit 30.5 % (39.0-52.0); Hemoglobin 9.7 g/dL (13.0-18.0); Mean Corp Hgb Conc. 31.8 g/dL (33.0-37.0); Mean Corpuscular Hgb 30.1 pg (27.0-31.0); Mean Corpuscular Volume 94.7 fL (80.0-94.0); Mean Platelet Volume 10.4 fL (7.4-10.4); Nucleated Red Blood Cells % 0 % (-); Platelet Count 169 10^3/uL (130-400); Red Blood Cell Count 3.22 10^6/uL (4.70-6.10); Red Cell Dist. Width 17.6 % (11.5-14.5); White Blood Cell Count 4.6 10^3/uL (4.8-10.8)
[2024-08-11 07:02] LABS: Blood Urea Nitrogen 20 mg/dl (9-20); Calcium 8.6 mg/dl (8.4-10.2); Carbon Dioxide 24 mmol/L (22-30); Chloride 116 mmol/L (98-107); Estimated Creatinine Clearance 34 ml/min; Glucose 81 mg/dl (70-99); Potassium 3.3 mmol/L (3.5-5.1); Sodium 147 mmol/L (135-145); eGFR 58.17
[2024-08-11 08:07] VITALS: BP 185/99
[2024-08-11 09:17] VITALS: BMI 26.3
--- NOTE | 2024-08-11 11:01 | CM ---
Addendum entered by Genesis Wall 08/11/24 15:24:
CM placed another call to [facility], [facility] VM for nurse requesting return call. CM spoke with Wallace from [facility], equipment has been ordered, will confirm when delivery scheduled for. CM met with patient and family bedside, discussed awaiting
return call from [facility] to confirm equipment delivery, plan for discharge tomorrow. TT to Hospitalist with update. Patient will require ambulance transport.
Plan; return to [facility] with [facility], will require ambulance transport.
Original Note:
CM reviewed chart, reviewed with Hospitalist, family agreeable to return to [facility] with Hospice. Family seen bedside, agreeable to [facility]. CM spoke with Wallace from [facility] ([phone]) fax: [phone], clinicals sent, will
review ability to admit patient for services today versus tomorrow. Call to nurse Rock at the [facility], left message with comprehensive ophthalmologist with request for return call. Patient will require ambulance transport, will need OOH DNR signed, will place on
chart. CM will await return call from [facility] regarding ability to accept.
Plan; return to [facility] with [facility], will require ambulance transport.
[2024-08-11] MEDS: ATIVAN 0.25 MG IV ×2 (11:27→18:19)
--- NOTE | 2024-08-11 13:10 | W.PN.HOSP.TC ---
Today's Communication/Plan
-
Comfort measures
Transition to hospice
Comfort feeding if family desires otherwise n.p.o.
Assessment / Plan
Assessment / Plan
89 years old male presented with bruising and swelling of right upper extremity over the past few days. History of falls
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
Patient with severe agitation will start patient on Risperdal twice daily
fall precautions.
# Dysphagia
Speech recommending n.p.o. for now
Continue with IV fluids D5 normal saline. Monitor sodium level.
PO meds held and switch to IV for now.
Discussed with patient daughter. Patient is an appropriate candidate for tube feeding as high risk the patient will remove gastric tube daughter and son-in-law agreed. Family has agreed to transition patient to comfort care with plan to transition
to hospice. Case management aware.
# Right upper extremity contusion with bruising and swelling. No tenderness on examination.
Movement of the shoulder is nontender or limited. Limited movement of the elbow. good right peripheral pulse.
X-ray no acute fracture
US , no DVT
CT scan showed soft tissue swelling, seems contusion. Doubt cellulitis due to lack of fever, leukocytosis. Pt is not reliable about pain. Plan for 7-day short course of antibiotics. Renally adjusted.
c/w Tylenol for pain as needed
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
# Gait dysfunction/history of multiple falls
Uses walker for ambulation
CAT scan showed old left parietal infarct and lacunar infarct in the left lentiform nucleus with diffuse cortical atrophy
PT/OT
Fall precautions
# Traumatic rhabdomyolysis With history of falls.
Creatinine is improved
s/p IV fluid.
# Primary hypertension
Uncontrolled. Status post IV fluids and patch. On comfort measures.
# History of coronary artery disease status cardiac bypass surgery. Patient follows with [facility]. We do not have records. No history of chest pain.
# Elevated troponin likely nonischemic myocardial injury
EKG paced rhythm.
Will try to get records. We do not have old EKG to compare
# History of permanent atrial fibrillation/ CAD s/w surgery.
Back on BB and aspirin.
s/p pacemaker.
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 Off aspirin
Monitored on telemetry
#Hyponatremia,
Mild. Will monitor
#Acute kidney injury. 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
Creatinine came down.
Family was told last admission in [place] the his levels were elevated but they did not know the baseline and did not have records.
Bladder scan, no retention. Urine test is clear, positive RBCs.
c/w Flomax ,
Avoid nephrotoxic.
No history of vomiting or diarrhea.
Elevated total bilirubin
Discussed plan of care with patient daughter, spouse and multiple other family members at bedside. Comfort measures..
Anticipated Discharge: Today
Subjective/Interval History
-
Date of Service: August 11, 2024
Overnight events were noted
Patient was transitioned to comfort care
Patient currently comfortable on 2 L of oxygen
Multiple family numbers at bedside
Objective Data
-
Labs:
Laboratory Results
08/11/24
04:59
WBC 4.6 L
Hgb 9.7 L
Hct 30.5 L
Plt Count 169
Sodium 147 H
Potassium 3.3 L
Chloride 116 H
Carbon Dioxide 24
BUN 20
Creatinine 1.2
Glucose 81
Calcium 8.6
Vital Signs:
Vital Signs
Temp Pulse Resp BP Pulse Ox
97.4 F 68 14 185/99 98
08/11/24 08:07 08/11/24 08:07 08/11/24 08:07 08/11/24 08:07 08/11/24 08:07
I&O
08/10/24 08/11/24 08/12/24
06:59 06:59 06:59
Intake Total 825 / 825 300 / 300
Balance 825 / 825 300 / 300
Physical Exam
-
General: Appears Chronically Ill
HEENT: Normocephalic, Atraumatic and Oxygen; Negative Moist Mucous Membranes
GI: Nondistended
Musculoskeletal: Other ( Right Upper Extremity (with bruising, non tender), good peripheral pulse. )
Psych: Calm
[2024-08-11 19:00] VITALS: BP 195/86
[2024-08-11] MEDS: MORPHINE SULFATE 1 MG IV (20:07)
[2024-08-11] MEDS: ROBINUL 0.2 MG IV (23:28)
[2024-08-12] MEDS: MORPHINE SULFATE 1 MG IV ×3 (02:28→12:29)
[2024-08-12 07:40] VITALS: BP 190/89
[2024-08-12] MEDS: ROBINUL 0.2 MG IV ×2 (08:09→11:41)
--- NOTE | 2024-08-12 08:53 | W.PN.HOSP.TC ---
Addendum entered and electronically signed by Magdi Doty MD 08/12/24 14:11:
Correction it should read 'Patient is NOT an appropriate candidate for tube feeding as high risk the patient will remove gastric tube daughter and son-in-law agreed.'
Original Note:
Today's Communication/Plan
-
Comfort care and transition to hospice at SNF
Antisecretory manage
Continue with comfort measures
Prognosis poor
Assessment / Plan
Assessment / Plan
89 years old male presented with bruising and swelling of right upper extremity over the past few days. History of falls
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
Patient with severe agitation will start patient on Risperdal twice daily
fall precautions.
# Acute hypoxic respiratory failure
Unable to swallow secretions. Antisecretory meds
# Dysphagia
Speech recommending n.p.o. for now
Continue with IV fluids D5 normal saline. Monitor sodium level.
PO meds held and switch to IV for now.
Discussed with patient daughter. Patient is an appropriate candidate for tube feeding as high risk the patient will remove gastric tube daughter and son-in-law agreed. Family has agreed to transition patient to comfort care with plan to transition
to hospice. Case management aware.
# Right upper extremity contusion with bruising and swelling. No tenderness on examination.
Movement of the shoulder is nontender or limited. Limited movement of the elbow. good right peripheral pulse.
X-ray no acute fracture
US , no DVT
CT scan showed soft tissue swelling, seems contusion. Doubt cellulitis due to lack of fever, leukocytosis. Pt is not reliable about pain. Plan for 7-day short course of antibiotics. Renally adjusted.
c/w Tylenol for pain as needed
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
# Gait dysfunction/history of multiple falls
Uses walker for ambulation
CAT scan showed old left parietal infarct and lacunar infarct in the left lentiform nucleus with diffuse cortical atrophy
PT/OT
Fall precautions
# Traumatic rhabdomyolysis With history of falls.
Creatinine is improved
s/p IV fluid.
# Primary hypertension
Uncontrolled. Status post IV fluids and patch. On comfort measures.
# History of coronary artery disease status cardiac bypass surgery. Patient follows with [place] [facility]. We do not have records. No history of chest pain.
# Elevated troponin likely nonischemic myocardial injury
EKG paced rhythm.
Will try to get records. We do not have old EKG to compare
# History of permanent atrial fibrillation/ CAD s/w surgery.
Back on BB and aspirin.
s/p pacemaker.
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 Off aspirin
Monitored on telemetry
#Hyponatremia,
Mild. Will monitor
#Acute kidney injury. 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
Creatinine came down.
Family was told last admission in [place] the his levels were elevated but they did not know the baseline and did not have records.
Bladder scan, no retention. Urine test is clear, positive RBCs.
c/w Flomax ,
Avoid nephrotoxic.
No history of vomiting or diarrhea.
Elevated total bilirubin
Disposition to SNF on hospice. Prognosis guarded.
More than 30 minutes spent in discharge including
Final examination of the patient
Summarizing hospital stay
Instructions for continuing care to all relevant caregivers
Preparation of discharge records, prescriptions, and referral forms
Total time spent (in minutes): 55
Anticipated Discharge: Today
Subjective/Interval History
-
Date of Service: August 12, 2024
Remains on oxygen
Patient with increased secretions
Objective Data
-
Vital Signs:
Vital Signs
Temp Pulse Resp BP Pulse Ox
97.9 F 75 26 190/89 94
08/12/24 07:40 08/12/24 07:40 08/12/24 07:40 08/12/24 07:40 08/12/24 07:40
I&O
08/11/24 08/12/24 08/13/24
06:59 06:59 06:59
Intake Total 300 / 300 0 / 0
Balance 300 / 300 0 / 0
Physical Exam
-
General: Appears Chronically Ill
HEENT: Normocephalic, Atraumatic and Oxygen; Negative Moist Mucous Membranes
Respiratory: Rhonchi (Due to increased secretions)
Cardiac: S1/S2
GI: Soft, Nondistended and Normal Bowel Sounds
Musculoskeletal: Other ( Right Upper Extremity (with bruising, non tender), good peripheral pulse. )
Skin: Warm
Psych: Other (Lethargic/sleepy)
--- NOTE | 2024-08-12 09:49 | CM ---
CM spoke with Wallace from [facility], confirmed ability to admit for hospice services today. Phone call to [facility], left message with manager custom for nurse Bauman at [facility], patient scheduled for 12:30 p.m. ambulance transport. OOH DNR signed,
on chart. Call to patients daughter, MIRANDA Llanes, to discuss transport time, IMM reviewed, placed in chart. CM will continue to follow for all discharge planning needs.
Plan; return to [facility] with [facility], 12:30 p.m. ambulance transport
[facility]
Report: [phone]

[facility]
--- NOTE | 2024-08-12 12:16 | W.DCSUMMARY ---
Discharge Summary
Discharge Data
Date of Admission: 08/06/24
Date of Discharge: 08/12/24
-
Pending Results: No
Hospital Course
89-year-old male past medical history of severe dementia, CVA with right sided weakness, gait dysfunction, history of multiple falls, hypertension, CAD status post CABG, atrial fibrillation, who is presenting from [facility] with right upper
extremity bruising. Patient was on IV antibiotics. X-ray was negative for fracture. Ultrasound negative for DVT. CT scan showed tissue swelling some contusion. Patient was started on IV antibiotics. Patient also with dementia and with
agitation and behavioral disturbances. Patient also had acute kidney injury. Patient also with dysphagia and failed speech and swallow evaluation. Speech evaluated on a daily basis and patient continued to remain with a significantly high risk
for aspiration. Patient hospitalization was discussed with patient daughter and plan was made to transition patient to hospice at [facility]. Patient is NOT an appropriate candidate for tube feeding as high risk the patient will remove gastric
tube daughter and son-in-law agreed. Patient was started on comfort measures and will be transition to SNF on hospice.
Discharge Plan
-
Patient Disposition: Shelter/SNF
Discharge Diagnosis/Procedures: Dementia with behavioral disturbances
Dysphagia
Right upper extremity contusion
Traumatic rhabdomyolysis
Condition: Fair
Diet: Other diet
Additional Diets: N.p.o. otherwise comfort feeding if if in alignment with patient goals of care
Other Services: Hospice
Referrals:
Ronn Jordan MD [Family Provider] - in less than 1 week
Prescriptions:
Discontinued
furosemide [Lasix] 40 mg Tablet
40 mg PO DAILY
atorvastatin [Lipitor] 40 mg Tablet
40 mg PO DAILY
Theragen Tablet
1 tab PO DAILY
aspirin 81 mg Tablet,Delayed Release (Dr/Ec)
81 mg PO DAILY
tamsulosin [Flomax] 0.4 mg Capsule
0.4 mg PO DAILY
pantoprazole [Protonix] 40 mg Tablet,Delayed Release (Dr/Ec)
40 mg PO DAILY
ferrous sulfate 325 mg (65 mg iron) Tablet
325 mg PO DAILY
metoprolol tartrate 25 mg Tablet
25 mg PO BID
donepezil [Aricept] 5 mg Tablet
5 mg PO HS
Discharge Orders:
Discharge Patient (As Directed); Ordered 08/12/24
Ordered By: Magdi Doty
Discharge Date and Time
Discharge Date/Time: 08/12/24 12:52
Print Language: FILIPINO
--- NOTE | 2024-08-12 12:40 | PTCARENOTE ---
Pt transported to [facility] and 5L O2. [facility]ul at [facility] updated.
== END 2024-08-12 12:52 | DRG 884 ==
LOC: 4 WEST ACU 15:51
PROVIDERS: Emergency Medicine; Hospitalist; ADMITTING PHYSICIAN Internal Medicine; ATTENDING PHYSICIAN Hospitalist; EMERGENCY PHYSICIAN Emergency Medicine; FAMILY PHYSICIAN Family Medicine
DX: F03.C18 Unspecified dementia, severe, with other behavioral disturbance (principal); J96.01 Acute respiratory failure with hypoxia; N17.9 Acute kidney failure, unspecified; E87.1 Hypo-osmolality and hyponatremia; I69.351 Hemiplegia and hemiparesis following cerebral infarction affecting right dominant side; I48.21 Permanent atrial fibrillation; I5A Non-ischemic myocardial injury (non-traumatic); R29.6 Repeated falls; I25.10 Atherosclerotic heart disease of native coronary artery without angina pectoris; T79.6XXA Traumatic ischemia of muscle, initial encounter; I10 Essential (primary) hypertension; G31.9 Degenerative disease of nervous system, unspecified; R13.10 Dysphagia, unspecified; S40.021A Contusion of right upper arm, initial encounter; Z51.5 Encounter for palliative care; W19.XXXA Unspecified fall, initial encounter; Y93.9 Activity, unspecified; Y92.129 Unspecified place in nursing home as the place of occurrence of the external cause; Z60.2 Problems related to living alone; Z66 Do not resuscitate; Z91.81 History of falling; Z95.0 Presence of cardiac pacemaker; Z79.82 Long term (current) use of aspirin; Z11.52 Encounter for screening for COVID-19; Z95.1 Presence of aortocoronary bypass graft
CPT/HCPCS: 29125; 51701; 70450; 71046; 73030; 73080; 73110; 73200; 80048; 80053; 81003; 81015; 82550; 84484; 85025; 85027; 87070; 87502; 87811; 92526; 92610; 93005; 93971; 96360; 97163; 97167; 97530; 99285